=== PATIENT | female | born 1965 | race African-American/Black ===

== ENCOUNTER 2024-12-30 12:50 | Inpatient (IN) | payer OTHER ==
[2024-12-30 14:49] VITALS: BMI 28.4
[2024-12-30] MEDS ORDERED: chlordiazePOXIDE HCL 25 MG CAPSULE PO PRN (15:57)
[2024-12-30] MEDS ORDERED: ONDANSETRON *ODT* 4 MG TABLET SL PRN (16:19)
[2024-12-30] MEDS ORDERED: BENZONATATE 200 MG CAPSULE PO PRN (16:19)
[2024-12-30] MEDS ORDERED: NALOXONE (NARCAN) HCL 4 MG/0.1 ML SPRAY NS PRN (16:19)
[2024-12-30] MEDS ORDERED: BENZOCAINE/MENTHOL (CHLORASEPTIC ) LOZENGE MM PRN (16:19)
[2024-12-30] MEDS ORDERED: ACETAMINOPHEN 325 MG TABLET (FP) PO PRN (16:19)
[2024-12-30] MEDS ORDERED: POLYETHYLENE GLYCOL (HEALTHYLAX) 3350 17 GM PACKET PO PRN (16:19)
[2024-12-30] MEDS ORDERED: IBUPROFEN 600 MG TABLET (FP) PO PRN (16:19)
[2024-12-30] MEDS ORDERED: guaiFENesin 600 MG TABLET.ER (FP) PO PRN (16:19)
[2024-12-30] MEDS ORDERED: hydrOXYzine PAMOATE 25 MG CAPSULE (FP) PO PRN (16:19)
[2024-12-30] MEDS ORDERED: DICYCLOMINE HCL 10 MG CAPSULE PO PRN (16:19)
[2024-12-30] MEDS ORDERED: LOPERAMIDE HCL 2 MG CAPSULE PO PRN (16:19)
[2024-12-30] MEDS ORDERED: BISMUTH SUBSALICYLATE 524 MG/30 ML PO PRN (16:19)
[2024-12-30] MEDS ORDERED: IBUPROFEN 400 MG TABLET (FP) PO PRN (16:19)
[2024-12-30] MEDS ORDERED: MAGNESIUM HYDROX 2400MG/30ML ORAL SUSPENSION 30 ML CUP PO PRN (16:19)
[2024-12-30] MEDS ORDERED: METHOCARBAMOL 500 MG TABLET PO PRN (16:19)
[2024-12-30] MEDS ORDERED: MAG HYDROX/AL HYDROX/SIMETH 30 ML UNIT-DOSE CUP PO PRN (16:19)
[2024-12-30] MEDS ORDERED: chlordiazePOXIDE HCL 25 MG CAPSULE ONE (17:06)
[2024-12-30] MEDS ORDERED: INSULIN (NOVOLOG) ASPART 100 UNITS/ML 10ML VIAL ONE (17:11)
[2024-12-30] MEDS: chlordiazePOXIDE HCL 25 MG CAPSULE PO SCH (17:14)
[2024-12-30] MEDS: INSULIN (NOVOLOG) ASPART 100 UNITS/ML 10ML VIAL SQ ONE (17:38)
[2024-12-30] MEDS: NALTREXONE HCL 50 MG TABLET PO ONE (18:18)
[2024-12-30] MEDS: MELATONIN 5 MG TABLETS PO SCH (22:05)
[2024-12-30] MEDS: THIAMINE 100 MG TABLET PO SCH (22:06)
[2024-12-30] MEDS: ATORVASTATIN CA 40 MG TABLET (FP) PO SCH (22:06)
[2024-12-30] MEDS: INSULIN GLARGINE (LANTUS) 100 UNITS/ML UNITS SQ SCH (22:09)
[2024-12-31] MEDS: INSULIN ASPART SLIDING SCALE (NOVOLOG) 1 VIAL SQ SCH (06:02)
[2024-12-31] MEDS ORDERED: INSULIN ASPART SLIDING SCALE (NOVOLOG) 1 VIAL SQ SCH (07:00)
[2024-12-31 09:48] LABS: CHLORIDE 107 mmol/L (98-107); POTASSIUM 3.7 mmol/L (3.5-5.1); SODIUM 139 mmol/L (136-145)
[2024-12-31 09:53] LABS: ALBUMIN 3.3 g/dl (3.4-5.0); CALCIUM 8.8 mg/dL (8.5-10.1)
[2024-12-31 09:54] LABS: ANION GAP 7 mmol/L (4-13); BLOOD UREA NITROGEN 10.8 mg/dL (7-18); CO2 26 mmol/L (21-32); GLUCOSE,RANDOM 323 mg/dL (74-106)
[2024-12-31 09:56] LABS: CREATININE 0.7 mg/dL (0.55-1.3); SGOT/AST 11 U/L (15-37); SGPT/ALT 19 U/L (13-61)
[2024-12-31 09:58] LABS: BILIRUBIN,TOTAL 0.6 mg/dL (0.2-1); TOT PROT 6.2 g/dl (6.4-8.2)
[2024-12-31 09:59] LABS: ALK PHOS 167 U/L (45-117)
[2024-12-31] MEDS ORDERED: MIRTAZAPINE 15 MG TABLET (FP) PO SCH ×2 (10:00→22:00)
[2024-12-31 10:02] LABS: HEMATOCRIT 34.5 % (32.4-45.2); HEMOGLOBIN 11.2 GM/dL (10.7-15.3); MCH 28.5 pg (25.7-33.7); MCHC 32.5 g/dl (32.0-36.0); MEAN CELL VOLUME 87.7 fl (80-96); MEAN PLT VOLUME 8.9 fl (7.5-11.1); PLATELET COUNT 193 10^3/uL (134-434); RBC 3.94 M/mm3 (3.60-5.2); RDW 13.2 % (11.6-15.6); WHITE BLOOD COUNT 7.4 K/mm3 (4.0-10.0)
[2024-12-31] MEDS: NALTREXONE HCL 50 MG TABLET PO SCH (10:46)
[2024-12-31] MEDS: PRENATAL VITAMINS W/ FOLIC ACID TABLET (FP) PO SCH (10:46)
[2025-01-01] MEDS: chlordiazePOXIDE HCL 25 MG CAPSULE PO SCH (06:20)
[2025-01-01] MEDS: MINERAL OIL/PETROLAT/WATER TOPICAL CREAM 113 GM JAR TP SCH (10:03)
[2025-01-01] MEDS: INSULIN GLARGINE 100 UNIT/ML SQ SCH (22:21)
[2025-01-02] MEDS ORDERED: chlordiazePOXIDE HCL 10 MG CAPSULE PO PRN
[2025-01-02] MEDS: chlordiazePOXIDE HCL 10 MG CAPSULE PO SCH (05:57)
[2025-01-03] MEDS: chlordiazePOXIDE HCL 10 MG CAPSULE PO SCH (05:37)
[2025-01-03] MEDS ORDERED: INSULIN GLARGINE (LANTUS) 100 UNITS/ML UNITS SQ ONE (07:47)
[2025-01-03 12:59] VITALS: TEMP 97.8
[2025-01-03 16:54] VITALS: BP 114/76; PULSE 108; RESP 16
[2025-01-04] MEDS ORDERED: chlordiazePOXIDE HCL 10 MG CAPSULE PO ONE (05:00)
== END 2025-01-03 17:52 | disposition home or self-care (01) | DRG 774 ==
LOC: YASAS 12:50 → Y3N 17:19
PROVIDERS: ADMIT Allergy & Immunology; ATTEND Allergy & Immunology
PROC: HZ2ZZZZ Detoxification Services for Substance Abuse Treatment (ICD-10-PCS; principal; 2024-12-30)
DX: F10.230 Alcohol dependence with withdrawal, uncomplicated (principal); F14.20 Cocaine dependence, uncomplicated; F16.20 Hallucinogen dependence, uncomplicated; F17.210 Nicotine dependence, cigarettes, uncomplicated; F43.10 Post-traumatic stress disorder, unspecified; E78.5 Hyperlipidemia, unspecified; E11.9 Type 2 diabetes mellitus without complications; Z79.4 Long term (current) use of insulin; R94.31 Abnormal electrocardiogram [ECG] [EKG]; Z62.810 Personal history of physical and sexual abuse in childhood; Z63.8 Other specified problems related to primary support group
CPT/HCPCS: 36415; 80053; 80305; 80307; 82962; 85027; 86780; 93005; 93010